=== PATIENT | female | born 1985 | race Caucasian/White ===

== ENCOUNTER 2019-10-07 05:59 | Inpatient (IN) | payer OTHER ==
[~2019-10-07] VITALS: Ht 167.6 cm; Wt 106.6 kg
[2019-10-07] MEDS ORDERED: LACTATED RINGERS 1,000 ML IV SCH (06:21)
[2019-10-07] MEDS ORDERED: CITRIC ACID/SODIUM CITRATE 30 ML UDC PO ONE (06:25)
[2019-10-07 07:30] LABS: BASOPHILS % (AUTO) 0.3 % (0.0-2.0); EOSINOPHILS % (AUTO) 0.3 % (0.0-4.0); HEMATOCRIT 35.1 % (36-48); HEMOGLOBIN 11.9 g/dL (12.0-16.0); LYMPHOCYTES # (AUTO) 1.1 K/uL (2.5-16.5); LYMPHOCYTES % (AUTO) 14.3 % (20.5-51.1); MEAN CORPUSCULAR HEMOGLOBIN 30 pg (27-31); MEAN CORPUSCULAR HGB CONC 34 g/dL (33-37); MEAN CORPUSCULAR VOLUME 87.8 fL (80-94); MONOCYTES # (AUTO) 0.3 K/uL (0.8-1.0); MONOCYTES % (AUTO) 4.4 % (1.7-9.3); NEUTROPHILS # (AUTO) 6.5 K/uL (1.8-7.7); NEUTROPHILS % (AUTO) 80.7 % (42.2-75.2); PLATELET COUNT (AUTO) 102 K/uL (140-450); RED CELL DISTRIBUTION WIDTH 14.7 % (11.6-13.7)
[2019-10-07 07:33] LABS: ALBUMIN 2.8 g/dL (3.4-5.0); ANION GAP 13.2 (8-16); CARBON DIOXIDE 22.4 mmol/L (21-32); CREATININE 0.8 mg/dL (0.6-1.3); POTASSIUM 3.6 mmol/L (3.5-5.1); TOTAL BILIRUBIN 0.5 mg/dL (0.0-1.0)
[2019-10-07 07:51] VITALS: BP 136/77
[2019-10-07] MEDS ORDERED: OSC500 PO (07:59)
[2019-10-07] MEDS ORDERED: PREN-380 PO (07:59)
[2019-10-07 08:02] LABS: APPEARANCE,URINE CLOUDY (CLEAR); BILIRUBIN,URINE NEGATIVE (NEGATIVE); BLOOD, URINE NEGATIVE (NEGATIVE); COLOR,URINE YELLOW (YELLOW); LEUKOCYTE ESTERASE ,URINE 1+ (NEGATIVE); NITRITE, URINE NEGATIVE (NEGATIVE); UGLUCOSE NEGATIVE (NEGATIVE)
--- NOTE | 2019-10-07 08:04 | NUR ---
PATIENT HAS BEEN SCREENED AND CATEGORIZED LOW NUTRITION RISK. PATIENT WILL BE SEEN WITHIN 7 DAYS OF ADMISSION. 10/13/[address]
[2019-10-07 09:03] LABS: RBC,URINE NONE SEEN /HPF (0-5)
[2019-10-07] MEDS ORDERED: OXYTOCIN 20 UNITS in LACTATED RINGERS 1,000 ML IV SCH (11:29)
[2019-10-07] MEDS ORDERED: HYDROmorphone 1 MG/ML AMP IVP PRN (11:30)
[2019-10-07] MEDS ORDERED: BLOOD GLUCOSE MONITORING 1 DEV DEV FS ONE (11:30)
[2019-10-07] MEDS ORDERED: NALBUPHINE 10 MG/ML AMP IVP PRN (11:30)
[2019-10-07] MEDS ORDERED: ONDANSETRON 4 MG/2 ML VIAL IVP PRN (11:30)
[2019-10-07] MEDS ORDERED: NALOXONE 0.4 MG/ML VIAL IVP PRN ×3 (11:30)
[2019-10-07] MEDS ORDERED: MEPERIDINE 25 MG/ML SYR IVP PRN (11:30)
[2019-10-07] MEDS ORDERED: diphenhydrAMINE 50 MG/ML VIAL IVP PRN ×2 (11:30)
[2019-10-07] MEDS ORDERED: METHYLERGONOVINE 0.2 MG/ML AMP IM PRN (11:40)
[2019-10-07] MEDS ORDERED: OXYTOCIN 20 UNITS in DEXT 5% / LACT RING 1,000 ML IV SCH (11:40)
[2019-10-07] MEDS ORDERED: TEMAZEPAM 15 MG CAP PO PRN (11:40)
[2019-10-07] MEDS ORDERED: IBUPROFEN 800 MG TAB PO PRN (11:40)
[2019-10-07] MEDS ORDERED: oxyCODONE/APAP 5/325 MG 1 TAB TAB PO PRN (11:40)
[2019-10-07] MEDS ORDERED: BUPRENORPHINE 0.3 MG/ML VIAL IV PRN (11:40)
[2019-10-07] MEDS ORDERED: HYDROcodone/APAP 5/325 MG 1 TAB TAB PO PRN (11:40)
[2019-10-07] MEDS ORDERED: OXYTOCIN 20 UNITS/LR PREMIX 1,000 ML IV ONE (12:05)
[2019-10-07] MEDS: CALCIUM POLYCARBOPHIL 625 MG TAB PO SCH ×2 (13:00→17:00)
[2019-10-07] MEDS: KETOROLAC 30 MG/ML VIAL IM/IVP SCH ×2 (13:20→20:13)
[2019-10-07] MEDS: ONDANSETRON 4 MG/2 ML VIAL IVP PRN ×2 (13:55→21:24)
[2019-10-07] MEDS ORDERED: SENNA 8.6 MG TAB PO SCH (21:00)
[2019-10-07] MEDS ORDERED: DOCUSATE SOD/SENNA 50/8.6 MG 1 TAB PO SCH (21:00)
[2019-10-08] MEDS: KETOROLAC 30 MG/ML VIAL IM/IVP SCH ×2 (03:00→12:11)
[2019-10-08 05:57] LABS: BASOPHILS % (AUTO) 0.1 % (0.0-2.0); EOSINOPHILS % (AUTO) 0.3 % (0.0-4.0); LYMPHOCYTES # (AUTO) 0.9 K/uL (2.5-16.5); MEAN CORPUSCULAR HEMOGLOBIN 30 pg (27-31); MEAN CORPUSCULAR HGB CONC 34 g/dL (33-37); MEAN CORPUSCULAR VOLUME 88.1 fL (80-94); MONOCYTES # (AUTO) 0.2 K/uL (0.8-1.0); MONOCYTES % (AUTO) 3.2 % (1.7-9.3); NEUTROPHILS # (AUTO) 6.3 K/uL (1.8-7.7); NEUTROPHILS % (AUTO) 84.4 % (42.2-75.2); PLATELET COUNT (AUTO) 80 K/uL (140-450); RED BLOOD CELL COUNT(AUTO) 3.29 MIL/uL (4.20-5.40); RED CELL DISTRIBUTION WIDTH 15.1 % (11.6-13.7); WHITE BLOOD COUNT (AUTO) 7.4 K/uL (4.8-10.8)
[2019-10-08] MEDS: CALCIUM POLYCARBOPHIL 625 MG TAB PO SCH ×4 (08:51→21:00)
[2019-10-08] MEDS: BISACODYL 5 MG TABEC PO SCH ×2 (08:51→21:00)
[2019-10-08] MEDS: SIMETHICONE 80 MG TAB.CHEW PO PRN ×2 (13:06→17:41)
[2019-10-09] MEDS: BISACODYL 5 MG TABEC PO SCH (08:54)
[2019-10-09] MEDS: CALCIUM POLYCARBOPHIL 625 MG TAB PO SCH ×2 (08:55→13:17)
[2019-10-09] MEDS: SIMETHICONE 80 MG TAB.CHEW PO PRN (09:13)
[2019-10-09] MEDS ORDERED: CAMERA MC ONE ×2 (14:47→15:12)
== END 2019-10-09 16:05 | disposition home or self-care (01) | DRG 540 ==
LOC: MLD 05:59 → MFCC 13:12
PROVIDERS: ADMIT Obstetrics & Gynecology; ATTEND Obstetrics & Gynecology
PROC: 10D00Z1 Extraction of Products of Conception, Low, Open Approach (ICD-10-PCS; principal; 2019-10-07 10:30)
DX: O34.211 Maternal care for low transverse scar from previous cesarean delivery (principal); O24.420 Gestational diabetes mellitus in childbirth, diet controlled; O69.1XX0 Labor and delivery complicated by cord around neck, with compression, not applicable or unspecified; Z37.0 Single live birth; Z3A.39 39 weeks gestation of pregnancy
CPT/HCPCS: 36415; 51702; 80053; 81001; 82948; 85025; 86592; 86886; 86900; 86901; 87081; 87086; J0690; J1885; J2405; J2590; J7060; J7120

== ENCOUNTER 2023-07-11 10:39 | Day surgery (SDC) | payer OTHER ==
[~2023-07-11] VITALS: Ht 165.1 cm; Wt 108.9 kg
[~2023-07-11 10:39] MED LIST: OSC500 PO; PREN-380 PO
[2023-07-11] MEDS ORDERED: diphenhydrAMINE 50 MG/ML VIAL ONE (11:35)
[2023-07-11] MEDS ORDERED: MIDAZOLAM 5 MG/5 ML VIAL ONE (11:35)
[2023-07-11] MEDS ORDERED: fentaNYL citrate 0.05 MG/ML VIAL ONE (11:35)
[2023-07-12] MEDS ORDERED: diphenhydrAMINE 50 MG/ML VIAL IVP ONE (10:25)
[2023-07-12] MEDS ORDERED: fentaNYL citrate 0.05 MG/ML VIAL IVP ONE (10:25)
[2023-07-12] MEDS ORDERED: MIDAZOLAM 2 MG/2 ML VIAL IVP ONE (10:25)
== END 2023-07-11 12:35 | disposition home or self-care (01) ==
LOC: MMU 10:39 → MOR 10:39
PROVIDERS: ATTEND Internal Medicine Gastroenterology
DX: R10.13 Epigastric pain (principal); K21.9 Gastro-esophageal reflux disease without esophagitis
CPT/HCPCS: 43239; J1200; J2250; J3010; 88305; 88312; 88313; 88342